=== PATIENT | male | born 1970 | race Two or more races ===

== ENCOUNTER 2024-08-21 18:00 | Inpatient (IN) | payer BC, OTHER ==
[~2024-08-21] VITALS: Ht 182.9 cm; Wt 126.5 kg
--- NOTE | 2024-08-21 18:59 | ECG ---
[facility] Test Date: 2024-08-21 Test Time: 18:58:08 Pat Name: MARIELLE AZEVEDO Department: ED Room: 0250T Gender: M Pre Coder: [place]ERT[place] : 1970 Requested By: KALA MCMILLAN Order Number: [id number] Reading MD: Hector Gutierres Measurements Intervals [place] Rate: 64 P: 50 MA: 194 QRS: 95 QRSD: 93 T: -22 QT: 401 QTc: 414 Interpretive Statements Sinus rhythm Inferior infarct, age indeterminate Electronically Signed On 08-24-2024 22:03:56 PDT by Hector Gutierres Please click the below link to view image of tracing.
[2024-08-21 19:17] LABS: Basophils # (auto) 0 10 ^3/uL (0-0.2); Basophils % (auto) 0.1 % (0.0-2.0); Eosinophils # (auto) 0.1 10 ^3/uL (0-0.8); Hematocrit 47.2 % (41.0-53.0); Hemoglobin 16.2 g/dL (13.5-17.5); Lymphocytes # (auto) 2.7 10 ^3/uL (0.4-5.4); Lymphocytes % (auto) 37.1 % (10.0-50.0); Mean Corpuscular Hemoglobin 31.3 pg (28.0-32.0); Mean Corpuscular Hgb Conc. 34.4 g/dL (32.0-36.0); Mean Corpuscular Volume 90.9 fL (80.0-100.0); Monocytes # (auto) 0.4 10 ^3/uL (0-1.3); Monocytes % (auto) 5.5 % (0.0-12.0); Neutrophils % (auto) 56.3 % (37.0-80.0); Nucleated Red Blood Cells % 0.1 %; Platelet Count (auto) 212 10^3/uL (140-450); Red Cell Distribution Width 13.3 % (11.8-14.3); White Blood Cell 7.2 10^3/uL (4.4-10.8)
[2024-08-21 19:19] LABS: Potassium 4.2 mmol/L (3.5-5.1); Sodium 142 mmol/L (136-145)
[2024-08-21 19:20] LABS: Anion Gap 8 (5-15); Carbon Dioxide 27 mmol/L (20-31)
[2024-08-21 19:25] LABS: BUN/Creatinine Ratio 16.8 (10.0-20.0); Blood Urea Nitrogen 19 mg/dL (9-23); Chloride 107 mmol/L (98-107); Glucose 85 mg/dL (74-106)
--- NOTE | 2024-08-21 19:48 | DVH ---
CHEST RADIOGRAPH Indication: cp Technique: Single frontal view of the chest was obtained Comparison: None FINDINGS: Lines and Tubes: None Lungs: No focal consolidation. Pleura: No effusion. No pneumothorax. Cardiomediastinal contours: Unremarkable Bones: No acute osseous abnormality. IMPRESSION: 1. No acute cardiopulmonary disease. HS:Y
--- NOTE | 2024-08-21 21:18 | ED.PDOC ---
History of Present Illness HPI Comments 54 y/o obese M is BIBA from an urgent care facility for c/o chest, neck, and left-arm pain, today. Per EMS report, patient was evaluated at an urgent care facility, initially, for pain symptoms that have been intermittent since initial unprovoked onset 2x days ago. Faculty at facility called EMS, due to patient's endorsement of pain and EKG performed then showing "deep Q waves and ST depression," which concerned them for possible silent [place]. Prior to EMS arrival on scene, patient received 324mg ASA by facility. Upon arrival to ED, patient reports no similar pain prior or significant medical history and endorses on only previous recent injury to his right shoulder that he sustained . He denies any shortness of breath, palpitations, nausea, vomiting, or other associated symptoms or modifiers at this time. Chief Complaint: Chest Pain Time Seen by MD: 18:40 Reviewed Notes: Nurses Notes, Tobacco Scrap Sifter Notes, Medications, Allergies Allergies: Coded Allergies: NO KNOWN ALLERGIES (Unverified , 08/21/24) Information Source: Patient, Emergency Med Personnel Mode of Arrival: EMS Past Medical History Past Medical History (Other): obesity Surgical History: Denies all surgeries Family History Family History: Unknown Social History Smoker: Non-Smoker Alcohol: Denies ETOH Use Drugs: Denies Drug Use Lives In: Home All Other Systems: Reviewed and Negative (Comprehensive systems review obtained and negative except for what is stated in the HPI.) Physical Exam General Appearance: No Apparent Distress, Obese HEENT: Normal ENT Inspection, Pharynx Normal, TMs Normal Neck: Full Range of Motion, Non-Tender, Normal, Normal Inspection Respiratory: Chest Non-Tender, Lungs Clear, No Accessory Muscle Use, No Respiratory Distress, Normal Breath Sounds Cardiovascular: No Edema, No JVD, No Murmur, No Gallop, Normal Peripheral Pulses, Regular Rate/Rhythm Breast Exam: Deferred Gastrointestinal: No Organomegaly, Non Tender, No Pulsatile Mass, Normal Bowel Sounds, Soft Genitalia: Deferred Pelvic: Deferred Rectal: Deferred Extremities: No calf tenderness, Normal capillary refill, Normal inspection, Normal range of motion, Non-tender, No pedal edema Musculoskeletal : Apperance: Normal Neurologic: Alert, 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 Was a procedure done?: No Differential Dx Considerations may include: [place], unstable angina, PE, musculoskeletal pain, anxiety, gastritis, costochondritis, pericarditis, URI, PNA, viral syndrome X-Ray, Labs, Meds, VS Vital Signs Date Time Temp Pulse Resp B/P (MAP) Pulse Ox O2 Delivery O2 Flow Rate FiO2 08/21/24 18:58 64 08/21/24 18:08 56 08/21/24 18:00 98.4 62 16 138/96 (110) 98 98.4 Lab Test 08/21/24 19:40 08/21/24 18:55 Range/Units Troponin I High Sensitivity < 3 L < 3 L </=54 ng/L White Blood Count 7.2 4.4-10.8 10^3/uL Red Blood Count 5.20 4.5-5.90 10^6/uL Hemoglobin 16.2 13.5-17.5 g/dL Hematocrit 47.2 41.0-53.0 % Mean Corpuscular Volume 90.9 80.0-100.0 fL Mean Corpuscular Hemoglobin 31.3 28.0-32.0 pg Mean Corpuscular Hemoglobin Concent 34.4 32.0-36.0 g/dL Red Cell Distribution Width 13.3 11.8-14.3 % Platelet Count 212 140-450 10^3/uL Mean Platelet Volume 7.8 6.9-10.8 fL Neutrophils (%) (Auto) 56.3 37.0-80.0 % Lymphocytes (%) (Auto) 37.1 10.0-50.0 % Monocytes (%) (Auto) 5.5 0.0-12.0 % Eosinophils (%) (Auto) 1.0 0.0-7.0 % Basophils (%) (Auto) 0.1 0.0-2.0 % Neutrophils # (Auto) 4.0 1.6-8.6 10 ^3/uL Lymphocytes # (Auto) 2.7 0.4-5.4 10 ^3/uL Monocytes # (Auto) 0.4 0-1.3 10 ^3/uL Eosinophils # (Auto) 0.1 0-0.8 10 ^3/uL Basophils # (Auto) 0 0-0.2 10 ^3/uL Nucleated Red Blood Cells 0.1 % Sodium Level 142 136-145 mmol/L Potassium Level 4.2 3.5-5.1 mmol/L Chloride Level 107 98-107 mmol/L Carbon Dioxide Level 27 20-31 mmol/L Anion Gap 8 5-15 Blood Urea Nitrogen 19 9-23 mg/dL Creatinine 1.13 0.700-1.30 mg/dL Glomerular Filtration Rate Calc 77 >90 mL/min BUN/Creatinine Ratio 16.8 10.0-20.0 Serum Glucose 85 74-106 mg/dL Calcium Level 10.0 8.7-10.4 mg/dL [facility] [id number] [place] [address] Ph: [phone] DIAGNOSTIC IMAGING Diagnostic Imaging Report : [id number] Signed PATIENT: MARIELLE AZEVEDO ACCT: [id number] UNIT: [id number] : 1970 LOC: ER ROOM / BED: / AGE / SEX: 54 / M ADM STATUS: REG ER SERVICE 40 ORDERING PHYSICIAN: KALA MCMILLAN MD PROCEDURE(s): CXRP - CHEST PORTABLE REASON: cp ORDER NUMBER(s): [id number], ACCESSION NUMBER(s): [id number] CHEST RADIOGRAPH Indication: cp Technique: Single frontal view of the chest was obtained Comparison: None FINDINGS: Lines and Tubes: None Lungs: No focal consolidation. Pleura: No effusion. No pneumothorax. Cardiomediastinal contours: Unremarkable Bones: No acute osseous abnormality. IMPRESSION: 1. No acute cardiopulmonary disease. HS:Y ATED BY: STEPHAN PANTOJA Jr., DO DICTATED DATE/TIME: 08/21/241945 SIGNED BY: STEPHAN PANTOJA Jr., SIGNED DATE/TIME: 08/21/241945 CC: Time of 1ST Reevaluation: 19:10 Reevaluation 1ST: Unchanged Time of 2ND Reevaluation: 21:35 Reevaluation 2ND: Improved Patient Education/Counseling: Diagnosis, Treatment, Prognosis, Need For Follow Up Family Education/Counseling: No Family Present Additional Information Previous visit documents reviewed: n/a The following tests were ordered, and results were reviewed by me: EKG, troponin, BMP, CBC, CXR Additional Information was gathered from interviewing the following independent historians: EMS I reviewed and agreed with the following test results read by other providers: CXR I discussed treatment and results with medical personnel and: Patient Departure 1 Departure Time of Disposition: 21:35 Impression: Primary Impression: Unstable angina Disposition: ADMITTED INPATIENT Admit to: Tele Condition: Stable Discharged With: Self Critical Care Note Critical Care Time?: Yes (55 min-critical care time only) Critical care comment: Due to concerns for patients condition deteriorating, the care required my highest level of attention and readiness to intervene. I assessed the patient, reviewed the medical records, ordered the appropriate tests and treatments, then reassessed for results and responsiveness. I communicated with medical personnel and consultants and formulated a plan of care. Total critical care time excludes any procedures Stability Stability form required: No Heart Score Heart Score: Heart Score Response (Comments) Value History Highly Suspicious 2 EKG Normal 0 Age 45-64 1 Risk Factors No known risk factors 0 Troponin Normal limit 0 Total 3 I personally scribed for KALA MCMILLAN MD ([email or web address]) on 08/21/24 at 21:18. Electronically submitted by Tony Szymanski ([email or web address]). KLAA MCMILLAN MD Aug 21, 2024 21:18
--- NOTE | 2024-08-21 23:40 | DVHHPRES ---
History of Present Illness Resident Creating Document: KAN ZHENG RESDIENT History of Present Illness This is a 54-year-old male with no significant past medical history referred from the urgent care due to abnormal EKG findings. Per patient he has chronic generalized body pain, and chest pain since 2 days. Pain is localized on left sided chest, radiating to the left arm and neck, constant, 8/10, pressure-like in nature with no clear exacerbating or relieving factor. Today he was seen in urgent care and due to abnormal EKG finding (Q-wave in inferior leads with T wave inversion) referred to emergency. Upon my assessment the patient was still complaining left-sided chest pain. He also reports mild shortness of breaths. He denies fever, nausea, vomiting, cough, abdominal pain, or any recent bowel and bladder habit changes. PMHx: No significant PSHx: Not significant Family history: Noncontributory Social history: Lives with the at home, denies smoking or any other drug use. Home medication: Take meloxicam for generalized body Allergic history: No known allergy Review of Systems Review of Systems General: patient denies fever, fatigue, weaknes, sweating, any recent changes in appetite and weight HEENT: No headaches, visiual changes, hearing loss, tinnitus, nasal congestion and discharge, and sore throat. Cardiovascular: Reports chest pain Respiratory: Reports shortness of breath Gastrointestinal: Denies nausea, vomiting, dysphagia, odynophagia, heartburn, abdominal pain, flatulence, bloating, diarrhea, constipation, change in stool, or blood in stool. Genitourinary: No dysuria, hematuria, discharge, frequency, urgency, nocturia, incontinence, and urinary retention. Endocrine: No heat or cold intolerance, polydipsia, polyuria, and polyphagia. Neurological: No dizziness, extremity weakness and numbness, tremors, gait disturbance, seizures, and memory impairment. Psychiatric: Denies depression, anxiety,or insomnia. Musculoskeletal: Denies neck pain, stiffness and swelling, back pain, muscle weakness, joint pain, stiffness, swelling, or limited range of motion. Skin: No rashes, itching, skin lesion, changes in hair, nail, skin texture and breast. Hematologic/Lymphatic: Denies easy bruising, bleeding tendencies, or lymph node enlargement. Allergies: Coded Allergies: NO KNOWN ALLERGIES (Unverified , 08/21/24) Exam Vital Signs Vital Signs Date Time Temp Pulse Resp B/P (MAP) Pulse Ox O2 Delivery O2 Flow Rate FiO2 08/21/24 18:58 64 08/21/24 18:00 98.4 16 138/96 (110) 98 98.4 Exam General Appearance: Alert, Oriented X3, Cooperative, No acute distress HEENT: Atraumatic, PERRLA, EOMI, Mucous membrane moist/pink Respiratory: Clear to auscultation, Normal air movement Cardiovascular: Regular rate, Normal S1, Normal S2, No murmurs, no chest wall tenderness Abdominal: Normal bowel sounds, Soft, No tenderness, No hepatospenomegaly, No masses Extremities: No clubbing, No cyanosis, No edema, Normal pulses, No tenderness/swelling Skin: No rashes, No breakdown, No significant lesion Neuro: Normal gait, Normal speech, Strength at 5/5 X4 ext, Normal tone, Sensation intact, Cranial nerves 3-12 NL, Reflexes 2+ Psych/Mental Status: Mental status NL, Mood NL Labs/Xrays Labs Test 08/21/24 19:40 08/21/24 18:55 Range/Units Troponin I High Sensitivity < 3 L </=54 ng/L White Blood Count 7.2 4.4-10.8 10^3/uL Red Blood Count 5.20 4.5-5.90 10^6/uL Hemoglobin 16.2 13.5-17.5 g/dL Hematocrit 47.2 41.0-53.0 % Mean Corpuscular Volume 90.9 80.0-100.0 fL Mean Corpuscular Hemoglobin 31.3 28.0-32.0 pg Mean Corpuscular Hemoglobin Concent 34.4 32.0-36.0 g/dL Red Cell Distribution Width 13.3 11.8-14.3 % Platelet Count 212 140-450 10^3/uL Mean Platelet Volume 7.8 6.9-10.8 fL Neutrophils (%) (Auto) 56.3 37.0-80.0 % Lymphocytes (%) (Auto) 37.1 10.0-50.0 % Monocytes (%) (Auto) 5.5 0.0-12.0 % Eosinophils (%) (Auto) 1.0 0.0-7.0 % Basophils (%) (Auto) 0.1 0.0-2.0 % Neutrophils # (Auto) 4.0 1.6-8.6 10 ^3/uL Lymphocytes # (Auto) 2.7 0.4-5.4 10 ^3/uL Monocytes # (Auto) 0.4 0-1.3 10 ^3/uL Eosinophils # (Auto) 0.1 0-0.8 10 ^3/uL Basophils # (Auto) 0 0-0.2 10 ^3/uL Nucleated Red Blood Cells 0.1 % Sodium Level 142 136-145 mmol/L Potassium Level 4.2 3.5-5.1 mmol/L Chloride Level 107 98-107 mmol/L Carbon Dioxide Level 27 20-31 mmol/L Anion Gap 8 5-15 Blood Urea Nitrogen 19 9-23 mg/dL Creatinine 1.13 0.700-1.30 mg/dL Glomerular Filtration Rate Calc 77 >90 mL/min BUN/Creatinine Ratio 16.8 10.0-20.0 Serum Glucose 85 74-106 mg/dL Calcium Level 10.0 8.7-10.4 mg/dL Assessment/Plan Assessment/Plan Chest pain,? ACS Possible previous silent [place] EKGs shows Q-waves and T wave inversion in inferior leads (leads II, III and AVF) Serial trop I is within normal limits Chest x-ray shows no acute cardiopulmonary abnormalities Check echocardiogram Consult cardiology Aspirin Atorvastatin Pain control Obesity grade 1 Consulted for healthy lifestyle including healthy food intake and physical activity DIET: Cardiac diet DVT PROPHYLAXIS: Lovenox GI PROPHYLAXIS:: Protonix CODE STATUS: Goal of care discussed for more than 18 minutes, full code DISPOSITION: Telemetry Patient's status and plan discussed with the patient and the patient's at the bedside. Case discussed with Dr. Briones. Plan discussed with: Patient, Other (RN) My Orders Orders - KAN ZHENG RESDIDENIS Procedure Category Date Status Time Admit ADMIT 08/21/24 Verified 23:38 Nitroglycerin [facility] 08/21/24 Verified Sublingual (Ntrostat 23:45 Morphine Sulfate [facility] 08/21/24 Verified Injection 23:45 Stat Ekg For Chest [facility] 08/21/24 Verified Pain 23:38 Notify Md Of Changes [facility] 08/21/24 Verified From Base 23:38 Rn Military For [facility] 08/21/24 Verified 24 Hours 23:38 Emergency Dysrhythmia [facility] 08/21/24 Verified Protocol 23:38 Rhythm Strips Once [facility] 08/21/24 Verified Every Shift 23:38 Date of Service: Aug 21, 2024 Billing Provider: SNOW BRIONES MD Common Visit Codes: [id number] INP/OBS CARE (HIGH) KAN ZHENG RESDIENT Aug 21, 2024 23:40 SNOW BRIONES MD Aug 22, 2024 11:29
[2024-08-21] MEDS ORDERED: MORPHINE SULFATE INJ 2 MG/ml SYRG IV PRN (23:45)
[2024-08-21] MEDS ORDERED: NITROGLYCERIN 0.4 MG SL TAB SL PRN (23:45)
[2024-08-21 23:58] VITALS: PULSE 60; RESP 19; O2SAT 97
[2024-08-22] VITALS (10 sets, daily range): BP systolic 100–137; BP diastolic 49–87; PULSE 61–89; RESP 16–19; TEMP 97.3–98.2; O2SAT 95–97
[2024-08-22] MEDS: HYDROcodone-ACET 5/325MG TAB PO PRN (02:00)
[2024-08-22] MEDS: ASPirin 81 mg TAB PO ONE (04:59)
[2024-08-22] MEDS: PANTOPRAZOLE 40 MG/10 ML VIAL INJ IV ONE (04:59)
[2024-08-22] MEDS: ATORVASTATIN 20 MG TAB PO ONE (04:59)
[2024-08-22 06:19] LABS: Albumin 4.4 g/dL (3.2-4.8); Bilirubin, Direct 0.2 mg/dL (<0.3); Bilirubin, Total 0.6 mg/dL (0.2-1.0)
[2024-08-22 06:23] LABS: INR 1.01 (0.9-1.15); Partial Thromboplastin Time 27.7 SEC (24.5-34.5); Prothrombin Time 10.7 sec (9.3-11.8)
[2024-08-22] MEDS: ENOXAPARIN SOD 40 MG/0.4 ML SYRINGE SC ONE (06:56)
[2024-08-22 09:21] LABS: Alanine Aminotransferase 37 U/L (7-40); Albumin 4.5 g/dL (3.2-4.8); Alkaline Phosphatase 60 U/L (46-116); Anion Gap 9 (5-15); Aspartate Aminotransferase 22 U/L (13-40); BUN/Creatinine Ratio 18.8 (10.0-20.0); Bilirubin, Total 0.5 mg/dL (0.2-1.0); Calcium 9.5 mg/dL (8.7-10.4); Carbon Dioxide 26 mmol/L (20-31); Glucose 105 mg/dL (74-106); Sodium 143 mmol/L (136-145); Total Protein 6.8 g/dL (5.7-8.2)
[2024-08-22 09:23] LABS: Blood Urea Nitrogen 24 mg/dL (9-23); Chloride 108 mmol/L (98-107)
[2024-08-22 09:47] LABS: Basophils # (auto) 0 10 ^3/uL (0-0.2); Basophils % (auto) 0.1 % (0.0-2.0); Eosinophils # (auto) 0.1 10 ^3/uL (0-0.8); Eosinophils % (auto) 1.9 % (0.0-7.0); Hematocrit 44.5 % (41.0-53.0); Hemoglobin 15.4 g/dL (13.5-17.5); Lymphocytes # (auto) 2.4 10 ^3/uL (0.4-5.4); Lymphocytes % (auto) 36.5 % (10.0-50.0); Mean Corpuscular Hemoglobin 30.9 pg (28.0-32.0); Mean Corpuscular Hgb Conc. 34.5 g/dL (32.0-36.0); Mean Corpuscular Volume 89.8 fL (80.0-100.0); Monocytes # (auto) 0.5 10 ^3/uL (0-1.3); Monocytes % (auto) 7.5 % (0.0-12.0); Neutrophils # (auto) 3.5 10 ^3/uL (1.6-8.6); Nucleated Red Blood Cells % 0.1 %; Platelet Count (auto) 208 10^3/uL (140-450); Red Blood Cells 4.96 10^6/uL (4.5-5.90); Red Cell Distribution Width 13.3 % (11.8-14.3); White Blood Cell 6.5 10^3/uL (4.4-10.8)
[2024-08-22] MEDS: PANTOPRAZOLE 40 MG/10 ML VIAL INJ IV SCH (09:56)
[2024-08-22] MEDS: ASPirin 81 mg TAB PO SCH (09:57)
--- NOTE | 2024-08-22 10:14 | DVHINCON2 ---
Date of service: Aug 22, 2024 History of Present Illness is is a 54-year-old male with no significant past medical history referred from the urgent care due to abnormal EKG findings. Per patient he has chronic g eneralized body pain, and chest pain since 2 days. Pain is localized on left sided chest, radiating to the left arm and neck, constant, 8/10, pressure-like in nature with no clear exacerbating or relieving factor. Today he was seen in urgent care and due to abnormal EKG finding (Q-wave in inferior leads with T wave inversion) referred to emergency. Upon my assessment the patient was still complaining left-sided chest pain. He also reports mild shortness of breaths. He denies fever, nausea, vomiting, cough, abdominal pain, or any recent bowel and bladder habit changes. PMHx: No significant PSHx: Not significant Family history: Noncontributory Social history: Lives with the at home, denies smoking or any other drug use. Home medication: Take meloxicam for generalized body Allergic history: No known allergy Past Medical History reviewed Family History: Cervical cancer Diabetes mellitus G8 MOTHER G8 FATHER Hypertension G8 MOTHER G8 FATHER Allergies: Coded Allergies: NO KNOWN ALLERGIES (Unverified , 08/21/24) Current Medications Current Medications Medications (Trade) Dose Ordered Sig/Laura Route PRN Reason Start Time Stop Time Status Last Admin Nitroglycerin (Ntrostat Sublingual) 0.4 mg Q5MINP PRN SL FOR CHEST PAIN 08/21/24 23:45 Morphine Sulfate 2 mg Q30M PRN IV FOR CHEST PAIN 08/21/24 23:45 Aspirin 81 mg DAILY PO 08/22/24 10:00 08/22/24 09:57 Atorvastatin Calcium (Lipitor) 40 mg HS PO 08/22/24 22:00 Pantoprazole Sodium (Protonix) 40 mg DAILY IV 08/22/24 10:00 08/22/24 09:56 Acetaminophen/ Hydrocodone Bitart (Cobb 5/325MG Tab) 1 tab Q4HPRN PRN PO MODERATE PAIN (4-6 PAIN SCALE) 08/22/24 00:30 08/22/24 09:57 Enoxaparin Sodium (Lovenox) 40 mg DAILY SC 08/23/24 10:00 Review of Systems 10 pt ros otherwise negative Vital Signs Vital Signs Date Time Temp Pulse Resp B/P (MAP) Pulse Ox O2 Delivery O2 Flow Rate FiO2 08/22/24 08:57 97.5 85 18 107/49 (68) 96 97.5 08/22/24 03:47 Room Air* 0 21 Physical Exam nad s1 s2 rrr ctab soft nt/nd no edema Labs/Diagnostic Data Labs Test 08/22/24 05:14 08/21/24 19:40 Range/Units White Blood Count 6.5 4.4-10.8 10^3/uL Red Blood Count 4.96 4.5-5.90 10^6/uL Hemoglobin 15.4 13.5-17.5 g/dL Hematocrit 44.5 41.0-53.0 % Mean Corpuscular Volume 89.8 80.0-100.0 fL Mean Corpuscular Hemoglobin 30.9 28.0-32.0 pg Mean Corpuscular Hemoglobin Concent 34.5 32.0-36.0 g/dL Red Cell Distribution Width 13.3 11.8-14.3 % Platelet Count 208 140-450 10^3/uL Mean Platelet Volume 8.2 6.9-10.8 fL Neutrophils (%) (Auto) 54.0 37.0-80.0 % Lymphocytes (%) (Auto) 36.5 10.0-50.0 % Monocytes (%) (Auto) 7.5 0.0-12.0 % Eosinophils (%) (Auto) 1.9 0.0-7.0 % Basophils (%) (Auto) 0.1 0.0-2.0 % Neutrophils # (Auto) 3.5 1.6-8.6 10 ^3/uL Lymphocytes # (Auto) 2.4 0.4-5.4 10 ^3/uL Monocytes # (Auto) 0.5 0-1.3 10 ^3/uL Eosinophils # (Auto) 0.1 0-0.8 10 ^3/uL Basophils # (Auto) 0 0-0.2 10 ^3/uL Nucleated Red Blood Cells 0.1 % Prothrombin Time 10.7 9.3-11.8 sec Prothrombin Time INR 1.01 0.9-1.15 Activated Partial Thromboplast Time 27.7 24.5-34.5 SEC D-Dimer, Quantitative 0.41 0.0-0.49 mg/L FEU Sodium Level 143 136-145 mmol/L Potassium Level 4.0 3.5-5.1 mmol/L Chloride Level 108 H 98-107 mmol/L Carbon Dioxide Level 26 20-31 mmol/L Anion Gap 9 5-15 Blood Urea Nitrogen 24 H 9-23 mg/dL Creatinine 1.28 0.700-1.30 mg/dL Glomerular Filtration Rate Calc 67 >90 mL/min BUN/Creatinine Ratio 18.8 10.0-20.0 Serum Glucose 105 74-106 mg/dL Hemoglobin A1c 5.6 <5.7 % A1C Calcium Level 9.5 8.7-10.4 mg/dL Total Bilirubin 0.5 0.2-1.0 mg/dL Direct Bilirubin 0.2 <0.3 mg/dL Aspartate Amino Transferase (AST) 22 13-40 U/L Alanine Aminotransferase (ALT) 37 7-40 U/L Alkaline Phosphatase 60 46-116 U/L Total Protein 6.8 5.7-8.2 g/dL Albumin 4.5 3.2-4.8 g/dL Triglycerides Level 208 H < 150 mg/dL Cholesterol Level 178 < 200 mg/dL LDL Cholesterol 124 H < 100 mg/dL HDL Cholesterol 37 L 40-59 mg/dL Thyroid Stimulating Hormone (TSH) 3.90 0.55-4.78 uIU/mL Troponin I High Sensitivity < 3 L </=54 ng/L Assessment r/o ACS obesity HTN abnormal ecg Plan/Recommendation non diabetic non smoker ACS ruled out ecg not in chart atypical symptoms, 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
--- NOTE | 2024-08-22 11:15 | ECG ---
[facility] Test Date: 2024-08-21 Test Time: 22:55:30 Pat Name: MARIELLE AZEVEDO Department: ER Room: [facility]0T B Gender: M Registered Associate: : 1970 Requested By: KALA MCMILLAN Order Number: [id number] Reading MD: Hector Gutierres Measurements Intervals [place] Rate: 55 P: 27 ID: [id number] QRS: 83 QRSD: 95 T: -20 QT: 431 QTc: 413 Interpretive Statements Sinus rhythm Nonspecific T abnormalities, inferior leads Electronically Signed On 08-24-2024 22:04:33 PDT by Hector Gutierres Please click the below link to view image of tracing.
[2024-08-22] MEDS: REGADENOSON 0.4 MG/5 ML SYRG IV ONE ×2 (11:23)
[2024-08-22 13:20] LABS: Urine Bacteria None Seen /hpf (None Seen)
[2024-08-22 13:49] LABS: Opiate Scree,Urine Neg (NEGATIVE)
[2024-08-22 13:51] LABS: Amphetamine Screen, Urine Neg (NEGATIVE); Barbiturate Scree,Urine Neg (NEGATIVE); Benzodiazephine Screen, Urine Neg (NEGATIVE); Cannabinoid Screen, Urine Neg (NEGATIVE); Cocaine Screen, Urine Neg (NEGATIVE); Phencyclidine Screen, Urine Neg (NEGATIVE)
[2024-08-22 15:00] LABS: Urine Blood Negative /uL (Negative); Urine Clarity Clear (Clear); Urine Color Light-Yellow (Yellow); Urine Protein, UAD Negative (Negative); Urine Squamous Epithelial Cell None Seen /hpf (<5); Urine Urobilinogen Normal (Negative); Urine WBC < 1 /HPF (0-3); Urine pH 5.5 (5.0-9.0)
--- NOTE | 2024-08-22 15:50 | DVHDS2 ---
Discharge Summary Date of Admission Aug 21, 2024 at 23:38 Date of Discharge: Aug 22, 2024 Labs/Diagnostic Data: Laboratory Results Test 08/22/24 13:20 08/22/24 05:14 08/21/24 19:40 Urine Color Light-yellow (Yellow) Urine Clarity Clear (Clear) Urine pH 5.5 (5.0-9.0) Urine Specific [place] 1.010 (1.001-1.035) Urine Protein Negative (Negative) Urine Ketones Negative (Negative) Urine Blood Negative /uL (Negative) Urine Nitrite Negative (Negative) Urine Bilirubin Negative (Negative) Urine Urobilinogen Normal mg/dL (Negative) Urine Leukocyte Esterase Negative /uL (Negative) Urine RBC <1 /hpf (0 - 3) Urine Microscopic WBC < 1 /HPF (0-3) Urine Squamous Epithelial Cells None seen /hpf (<5) Urine Bacteria None seen /hpf (None Seen) Urine Glucose Normal mg/dL (Normal) Urine Opiates Screen Neg (NEGATIVE) Urine Fentanyl Screen Neg (NEGATIVE) Urine Barbiturates Screen Neg (NEGATIVE) Urine Phencyclidine Screen Neg (NEGATIVE) Urine Amphetamines Screen Neg (NEGATIVE) Urine Benzodiazepines Screen Neg (NEGATIVE) Urine Cocaine Screen Neg (NEGATIVE) Urine Cannabinoids Screen Neg (NEGATIVE) White Blood Count 6.5 10^3/uL (4.4-10.8) Red Blood Count 4.96 10^6/uL (4.5-5.90) Hemoglobin 15.4 g/dL (13.5-17.5) Hematocrit 44.5 % (41.0-53.0) Mean Corpuscular Volume 89.8 fL (80.0-100.0) Mean Corpuscular Hemoglobin 30.9 pg (28.0-32.0) Mean Corpuscular Hemoglobin Concent 34.5 g/dL (32.0-36.0) Red Cell Distribution Width 13.3 % (11.8-14.3) Platelet Count 208 10^3/uL (140-450) Mean Platelet Volume 8.2 fL (6.9-10.8) Neutrophils (%) (Auto) 54.0 % (37.0-80.0) Lymphocytes (%) (Auto) 36.5 % (10.0-50.0) Monocytes (%) (Auto) 7.5 % (0.0-12.0) Eosinophils (%) (Auto) 1.9 % (0.0-7.0) Basophils (%) (Auto) 0.1 % (0.0-2.0) Neutrophils # (Auto) 3.5 10 ^3/uL (1.6-8.6) Lymphocytes # (Auto) 2.4 10 ^3/uL (0.4-5.4) Monocytes # (Auto) 0.5 10 ^3/uL (0-1.3) Eosinophils # (Auto) 0.1 10 ^3/uL (0-0.8) Basophils # (Auto) 0 10 ^3/uL (0-0.2) Nucleated Red Blood Cells 0.1 % Prothrombin Time 10.7 sec (9.3-11.8) Prothrombin Time INR 1.01 (0.9-1.15) Activated Partial Thromboplast Time 27.7 SEC (24.5-34.5) D-Dimer, Quantitative 0.41 mg/L FEU (0.0-0.49) Sodium Level 143 mmol/L (136-145) Potassium Level 4.0 mmol/L (3.5-5.1) Chloride Level 108 mmol/L (98-107) Carbon Dioxide Level 26 mmol/L (20-31) Anion Gap 9 (5-15) Blood Urea Nitrogen 24 mg/dL (9-23) Creatinine 1.28 mg/dL (0.700-1.30) Glomerular Filtration Rate Calc 67 mL/min (>90) BUN/Creatinine Ratio 18.8 (10.0-20.0) Serum Glucose 105 mg/dL (74-106) Hemoglobin A1c 5.6 % A1C (<5.7) Calcium Level 9.5 mg/dL (8.7-10.4) Total Bilirubin 0.5 mg/dL (0.2-1.0) Direct Bilirubin 0.2 mg/dL (<0.3) Aspartate Amino Transferase (AST) 22 U/L (13-40) Alanine Aminotransferase (ALT) 37 U/L (7-40) Alkaline Phosphatase 60 U/L (46-116) Total Protein 6.8 g/dL (5.7-8.2) Albumin 4.5 g/dL (3.2-4.8) Triglycerides Level 208 mg/dL (< 150) Cholesterol Level 178 mg/dL (< 200) LDL Cholesterol 124 mg/dL (< 100) HDL Cholesterol 37 mg/dL (40-59) Thyroid Stimulating Hormone (TSH) 3.90 uIU/mL (0.55-4.78) Troponin I High Sensitivity < 3 ng/L (</=54) Other Laboratory Tests 08/22/24 05:14 Brief Hx & Hospital Course: 54-year-old male with a no significant past medical history referred from urgent Care due to abnormal EKG findings. Patient has a generalized body pain as well as neck pain and chest pain for last two days. Patient was equalized left-sided chest pain radiating to the left arm and neck. Eventually patient was admitted cardiology was consulted. Patient underwent Cardiolite stress test which was normal. 2D echo has normal ejection fraction. Patient was cleared by Cardiology all the questions were answered. Patient was stable to be discharged with close follow up as an outpatient with the PCP for neck pain workup may need MRI C-spine to rule out any cervical myelopathy although low clinical suspicion. Patient is currently understand and agreeable to plan. Condition at Discharge: Stable Final Diagnosis/Problems List 1. Chest pain OH ruled out 2. Morbid obesity class two, diet weight reduction and exercise counseling. Discharge Disposition: Home SNF Discharge Will this Physician continue t: No Discharge Instruct/Medications Diet: Cardiac 2g Na,low cholest Activity: No Restrictions, As Tolerated Follow Up/Referral: Please follow up with the PCP in 1-2 weeks Medications: None listed Discharge Statement: "Patient was advised to return to the ER or call 911 if any headaches, dizziness, shortness of breath, chest pain, abdominal pain, bleeding, fevers, or worsening of medical condition. Patient was counseled about treatment plan, medications, possible side effects, patientverbalized understanding. All questions were answered to the best of my ability. This discharge took greater then 30 minutes in planning, reviewing documentation, counseling the patient, and discussing with other team members." ASSESSMENT ASSESSMENT Assessment 1. Chest pain [place] ruled out Date of Service: Aug 23, 2024 Billing Provider: GRUPO BELL MD Common Visit Codes: NOT BILLABLE GRUPO BELL MD Aug 22, 2024 15:50
[2024-08-22] MEDS: ATORVASTATIN 20 MG TAB PO SCH (21:20)
[2024-08-23 01:00] VITALS: BP 124/85; PULSE 68; RESP 18; TEMP 98.2; O2SAT 97
[2024-08-23 05:00] VITALS: BP 116/74; PULSE 51; RESP 19; TEMP 97.4; O2SAT 98
--- NOTE | 2024-08-23 06:58 | ECG ---
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
[2024-08-23 07:33] LABS: Basophils # (auto) 0 10 ^3/uL (0-0.2); Basophils % (auto) 0.2 % (0.0-2.0); Eosinophils # (auto) 0.1 10 ^3/uL (0-0.8); Eosinophils % (auto) 2.2 % (0.0-7.0); Hematocrit 45.1 % (41.0-53.0); Hemoglobin 15.7 g/dL (13.5-17.5); Lymphocytes # (auto) 2.3 10 ^3/uL (0.4-5.4); Lymphocytes % (auto) 41.4 % (10.0-50.0); Mean Corpuscular Hemoglobin 31.2 pg (28.0-32.0); Mean Corpuscular Hgb Conc. 34.8 g/dL (32.0-36.0); Mean Corpuscular Volume 89.8 fL (80.0-100.0); Monocytes # (auto) 0.4 10 ^3/uL (0-1.3); Monocytes % (auto) 7.7 % (0.0-12.0); Neutrophils # (auto) 2.7 10 ^3/uL (1.6-8.6); Neutrophils % (auto) 48.5 % (37.0-80.0); Platelet Count (auto) 199 10^3/uL (140-450); Red Blood Cells 5.03 10^6/uL (4.5-5.90); Red Cell Distribution Width 13.3 % (11.8-14.3); White Blood Cell 5.6 10^3/uL (4.4-10.8)
--- NOTE | 2024-08-23 07:49 | DVHSR ---
APPROVED REPORT EXAM: Two-dimensional and M-mode echocardiogram with Doppler and color Doppler. Blood Pressure: 124/79 mmHg INDICATION Chest Pain RISK FACTORS Height: 71, Weight: 240 DIMENSIONS LVDd4.4 (3.8-5.7cm)LA (2D)3.7 (1.9-4.0cm)Aortic Root3.5 (2.0-3.7cm) LVDs2.9 (2.5-4.0cm)LA (MM) (1.9-4.0cm)Aortic Cusp Exc1.9 (1.5-2.0cm) EF (%) 65.0 (55-70%)Rt. Atrium4.4 (1.9-4.0cm)Asc. Aorta cm IVSd1.2 (0.7-1.1cm)RV (D) (1.8-2.4cm) PWd1.1 (0.7-1.1cm) Mitral Valve MitralMitral Stenosis E wave0.70m/sMV Mean GR.mmHg A wave0.73m/sMV Peak GR.mmHg E/A ratio1.02D MVAcm2 DECEL [id number] 1/2 [id number] IVRTmsDop MVA4.81cm2 Aortic Valve Aortic ValveAortic Stenosis V10.99m/Kody Mean GR.4mmHg V21.34m/Kody Peak GR.7mmHg LVOT Diameter2.3 (1.8-2.4cm)Doppler AVA3.07cm2 Pulmonic Valve V21.03m/s Conclusion lvef 65 % by visual estiamte low normal function borderline LVH normal RV function no severe valve abnormaliites noted
[2024-08-23 07:59] LABS: Alanine Aminotransferase 37 U/L (7-40); Albumin 4.4 g/dL (3.2-4.8); Alkaline Phosphatase 50 U/L (46-116); Anion Gap 8 (5-15); Aspartate Aminotransferase 25 U/L (13-40); BUN/Creatinine Ratio 16.5 (10.0-20.0); Bilirubin, Total 0.8 mg/dL (0.2-1.0); Blood Urea Nitrogen 18 mg/dL (9-23); Calcium 9.6 mg/dL (8.7-10.4); Carbon Dioxide 26 mmol/L (20-31); Chloride 107 mmol/L (98-107); Glucose 97 mg/dL (74-106); Potassium 4.1 mmol/L (3.5-5.1); Sodium 141 mmol/L (136-145)
[2024-08-23 08:00] VITALS: PULSE 65
[2024-08-23 09:20] VITALS: BP 119/77; PULSE 78; RESP 17; TEMP 98.1; O2SAT 96
[2024-08-23] MEDS: ENOXAPARIN SOD 40 MG/0.4 ML SYRINGE SC SCH (11:37)
[2024-08-23 13:25] VITALS: BP 127/90; PULSE 80; RESP 18; TEMP 97.8; O2SAT 96
--- NOTE | 2024-08-24 07:26 | DVHSR ---
APPROVED REPORT Exam: Nuclear Stress Test Indication: CAD Stress Tech: Shira Carrillo Ht: 6 ft 0 in Wt: 240 lbs BSA: 2.30 m2 HR: 67 bpm BP: 107/81 mmHg BMI: 32.54 Rhythm: NSR Medical History Medical History: HETAL Allergies: No known drug allergies Stress Test Details Stress Test: Pharmacologic stress testing performed using 0.4 mg of regadenoson per 5 mL given IV ov er 10 seconds. Reason for pharmacologic stress test: CAD. HR Resting HR: 67 bpmMax Heart Rate (APMHR): 166.478064 bpm Max HR Achieved: 94 bpmTarget HR (85% APMHR): 141.090093 bpm % of APMHR: 56.63 Recovery HR: 79 bpm BP Resting BP: 107/81 mmHg Recovery BP: 104/73 mmHg ECG Resting ECG: NSR Clinical Reason for Termination: Completed protocol Nurse Comments Uneventful stress test performed per protocol. Patient tolerated well and was taken back [facility] via wheel chair in stable condition by tech. Stress ECG Conclusion GI artifact no severe ischemia noted normal lvef 57% normal ecg (no q waves ) NM EXAM: Myocardial Perfusion REST/STRESS Nuclear Conclusion Nuclear Findings: negative for ischemia GI artifact no severe ischemia noted normal lvef 57% normal ecg (no q waves )
== END 2024-08-23 14:20 | disposition home or self-care (01) | DRG 313 ==
LOC: EDBD 18:00 → ER 18:00 → OVERFLOW 23:38 → TELE-EAST 08-22 03:03
PROVIDERS: ADMIT Internal Medicine Geriatric Medicine; ATTEND Internal Medicine
DX: R07.89 Other chest pain (principal); I20.0 Unstable angina; I10 Essential (primary) hypertension; R94.31 Abnormal electrocardiogram [ECG] [EKG]; E66.01 Morbid (severe) obesity due to excess calories; M54.2 Cervicalgia; Z83.3 Family history of diabetes mellitus; Z82.49 Family history of ischemic heart disease and other diseases of the circulatory system; Z68.32 Body mass index [BMI] 32.0-32.9, adult
CPT/HCPCS: 36415; 71045; 78452; 80048; 80053; 80061; 80076; 80307; 81001; 83036; 84443; 84484; 85025; 85379; 85610; 85730; 93005; 93017; 93306; 99291; G0378; J2470